=== PATIENT | male | born 1945 | race Caucasian/White ===

== ENCOUNTER 2016-04-18 07:49 | Inpatient (IN) | payer MEDICARE, OTHER ==
[2016-04-18] VITALS (9 sets, daily range): BP systolic 104–154; BP diastolic 56–81; PULSE 44–64; RESP 14–18; O2SAT 90–99
[~2016-04-18] VITALS: Ht 180.3 cm; Wt 91.1 kg
[~2016-04-18 07:49] MED LIST: ASCO500C6 PO; ASPI-973 PO; Acetaminophen IV 1,000 MG in IV Premix 1 EACH IV ONE; Bupivacaine Liposome 1.3% 20 mL Inj INFILTRATE SCH; CHOL400T PO; CYAN250014 PO; CeFAZolin Inj 2 GM in IV Premix 1 EACH IV ONE; DICL100G8 TOPICAL; FAMO20T PO; Lactated Ringer's 1,000 ML IV ONE; PUMP160C PO
--- NOTE | 2016-04-18 11:03 | PCM.HPANE ---
Patient Data Date of Service: Apr 18, 2016 Surgeon Admitting Provider: Attending Provider:Mei Maza MD Primary Care Physician:Harley Delgado MD Other Provider:Christiano Hauser Anesthesia Reason for Visit Prostate Cancer PROSTATE CANCER Ht/WT & BMI Height (Feet): 5 Height (Inches): 11.00 Weight (Kilograms): 91.0 Body Mass Index 28.00 Allergies Coded Allergies: No Known Allergies (Verified Allergy, Unknown, 07/31/13) Past Anesthesia History Anesthesia History: Denies:: Abnormal Airway, Anesthesia Reactions, Difficult Intubation, Fam Anesthesia Reaction, Fam Malignant Hypertherm, Malignant Hyperthermia Diabetes History Hx Diabetes?: No MRSA MRSA: No Medications Blood Thinner: Aspirin Hypertension Medication: No Home Meds Incl Beta Berny: No Reported Medications Cyanocobalamin (Vitamin B-12) (Vitamin B12)2,500 Mcg Tab.chew2,500 Mcg PO DAILY 04/14/16 Ascorbic Acid (Vitamin C)500 Mg Capsule.er500 Mg PO DAILY 04/14/16 Famotidine (Pepcid)20 Mg Clyieu96 Mg PO DAILY 04/14/16 Diclofenac Gel (Voltaren Gel)100 Gm Tube1 Applic TOPICAL PRN For Pain #1 TUBE 04/14/16 Pumpkin Seed Oil/Saw Crum Lynne (Saw Crum Lynne 160 mg Softgel)160 Mg Ptxsjiv318 Mg PO DAILY 04/14/16 Cholecalciferol (Vitamin D3) (Vitamin D3)400 Unit Clgsjv120 Unit PO DAILY 04/14/16 Aspirin 81 Mg Uooijk04 Mg PO DAILY Ref 0 04/14/16 Discontinued Reported Medications Famotidine 20 Mg Lvzade71 Mg PO BID 30 Days Ref 0 07/31/13 Aspirin (Aspir 81)81 Mg Tablet.dr81 Mg PO DAILY Ref 0 07/31/13 History History of ENT Problems?: Yes HEENT History: Positive for:: Hearing Problem Denies:: Abnormal Airway Cataracts Difficult Intubation Dysphagia Glaucoma Sinus Problem TMJ Hx of Heart Problems?: No Cardiovascular History: Positive for:: Peripheral Vascular (hx varicose veins) Denies:: AICD Edema Heart Murmur Hypertension Irregular Heartbeat Pacemaker Rheumatic Fever Thrombophlebitis Valvular Heart Disease Hx of Respiratory Problem?: Yes Respiratory History: Denies:: Asthma COPD Emphysema Oxygen Administration Pneumonia Tuberculosis (family member with TB, no postive test personally) Use of C-PAP Machine Hx Neurologic Problems?: Yes Neurological History: Denies:: CVA Headaches (hx of ocular migraines, remote hx of ) Multiple Sclerosis Parkinson's Disease Seizures Hx of GI Problems?: Yes Gastrointestinal History: Positive for:: Gastroesphageal Reflux (takes famotidine, remote hx of foreign body) Denies:: Cirrhosis Diverticulitis (DIVERTICULOSIS) Gall Bladder Disease Gastrointestinal Bleeding Heartburn Hepatitis Hiatal Hernia Liver Disease Hx of Problems?: No Genitourinary History: Denies:: HX of Hemodialysis (HX OF CHRONIC RENAL INSUFFICIENCY) Kidney Stones Urinary Tract Infection Male Hx: Positive for:: Prostate Problems (current admission problem) Testicular Surgery (S/P VASECTOMY) Denies:: Scrotal Mass Skin History: Denies:: History Skin Disorders? Pressure Ulcers Hx Musculoskeletal Problems?: Yes Musculoskeletal History: Positive for:: Musculoskeletal Trauma (past hx bilateral fx wrists) Osteoarthritis Denies:: Back Injury Fibromyalgia Joint Replacement Myasthenia Gravis Rheumatoid Arthritis Systemic Lupus Hx of Psycho/Social Problems?: No Psycho Social History: Denies:: Anxiety Hx Depression Hx Surgeries?: Yes (varicose veins, tonsil, vas) Hx Any Other Health Problems?: Yes Other History: Positive for:: Cancer (prostate current admission problem) Hospitalization (AFTER FALL/FX WRISTS) Denies:: Thyroid Disease History Blood Transfusions: Positive for:: Accept Blood Products? Denies:: Blood Transfusions Hx Diabetes: No Hx Alcohol Use: YesAlcoholic Drinks Per Day: 2-3 drinks dailyHx Substance Use : NoHave You Smoked inLast 12 mo: No Stop/Bang S-Snoring: Do You Snore Loudly: No T-Tired: feel tired, fatigued: No O-Obsered: Observed not breath: No P-Blood Pressure: treated: No B- Body Mass Index > 35 kg/m2: No A- Age over 50: Yes N- Neck Large Circumference: No G- Gender Male: Yes RON Total Score: 2 RON Risk Assessment: Low Risk, <3 Yes Risk Assessment Category Category 1A: Patient has history of documented sleep apnea, and HAS NOT received any narcotic, sedative or anesthesia administration during this stay. Category 1B: Patient has history of documented sleep apnea, and HAS received any narcotic , sedative or anesthesia administration during this stay Category 2: Patient has SUSPECTED Obstructive Sleep Apnea, and HAS received any narcotic , sedative or anesthesia administration during this stay. Category 3: Patient has SUSPECTED Obstructive Sleep Apnea and HAS NOT received narcotic, sedative or anesthesia administration during this stay. Category 4: Outpatient in Procedural Areas with known sleep apnea or who screen positive for High Risk via the STOP/BANG questionnaire. Exam Exam Vital Signs Vital Signs Date Time Temp Pulse Resp B/P Pulse Ox O2 Delivery O2 Flow Rate FiO2 04/18/16 08:23 36.0 53 18 154/81 99 Room Air General Appearance: Alert, Oriented X3, Cooperative, No Acute Distress HEENT/AIRWAY: MP 1 Lungs: Normal Air Movement Heart: Exam Unremarkable Meds/Labs/Diagnostics Admission Meds Current Medications Lactated Ringer's (Lr) 1,000 ml @ 120 mls/hr Q8H20M ONCE IV Last administered on 04/18/16t 07:57; Start 04/18/16 at 05:00; Stop 04/18/16 at 13:19 Plan Impression Patient chart reviewed, patient interviewed and anesthestic plan with risks, benefits, and alternatives discussed, and informed consent obtained. NPO Status: BLACK COFFEE AND WATER UNTIL 6AM ASA Physical Status: ASA2 Mod Systemic Disease Anesthetic Plan: GA, SAB (for post-op pain ) Bene/Risks/Altern/Consents: Yes HP Complete Prior to Induction: Yes Troy Zelaya MD Apr 18, 2016 08:51
[2016-04-18] MEDS ORDERED: Lactated Ringer's 1,000 ML IV SCH (11:17)
[2016-04-18] MEDS ORDERED: Lactated Ringer's 500 ML IV PRN (11:17)
[2016-04-18] MEDS ORDERED: Phenylephrine 10,000 mCg/mL Inj IVPUSH PRN (11:20)
[2016-04-18] MEDS ORDERED: fentaNYL-PF 50 mCg/mL 2 mL Inj IVPUSH PRN (11:20)
[2016-04-18] MEDS ORDERED: Atropine 0.4 mg/mL Inj IVPUSH PRN (11:20)
[2016-04-18] MEDS ORDERED: Labetalol 5 mg/mL 4 mL Inj IV PRN (11:20)
[2016-04-18] MEDS ORDERED: hydrALAZINE 20 mg/mL Inj IVPUSH PRN (11:20)
[2016-04-18] MEDS ORDERED: Ondansetron 2 mg/mL 2 mL Inj IVPUSH PRN (11:20)
[2016-04-18] MEDS ORDERED: EPHEDrine Sulfate 50 mg/mL Inj IVPUSH PRN (11:20)
[2016-04-18] MEDS ORDERED: Dexamethasone 4 mg/mL Inj IVPUSH PRN (11:20)
[2016-04-18] MEDS ORDERED: HYDROmorphone 1 mg/mL Inj IVPUSH PRN ×2 (11:20→13:05)
[2016-04-18] MEDS ORDERED: MetoCLOpramide 5 mg/mL 2 mL Inj IVPUSH PRN (11:20)
[2016-04-18 12:19] LABS: APPEARANCE,URINE HAZY (CLEAR,HAZY); COLOR,URINE STRAW (YELLOW); OCCULT BLOOD,URINE MODERATE (NEGATIVE)
[2016-04-18 12:20] LABS: UROBILINOGEN,URINE NORMAL (NORMAL)
[2016-04-18] MEDS ORDERED: Lactated Ringer's 1,000 ML IV ONE (12:30)
[2016-04-18] MEDS ORDERED: Polyethylene Glycol (PEG) 17 Gm Powder PO PRN (13:05)
[2016-04-18] MEDS ORDERED: Ketorolac 15 mg/mL Inj IVPUSH PRN (13:05)
--- NOTE | 2016-04-18 13:43 | PCM.ANEP1 ---
Post Anesthesia Phase 1 PACU Phase 1 Assessment Date of Service: Apr 18, 2016 Vital Signs Vital Signs Date Time Temp Pulse Resp B/P Pulse Ox O2 Delivery O2 Flow Rate FiO2 04/18/16 13:30 58 14 110/70 96 Nasal Cannula 4 04/18/16 13:25 51 14 111/71 95 Nasal Cannula 4 04/18/16 13:15 36.5 55 14 104/56 90 Nasal Cannula 4 04/18/16 08:23 36.0 53 18 154/81 99 Room Air Anesthetic Administered: GA, SAB Level of Alertness: Sleepy, easy to arouse Pain: No Nausea or Vomiting: No Oxygen Delivery: Nasal Cannula Lungs: Normal Air Movement Troy Zelaya MD Apr 18, 2016 13:43
[2016-04-18] MEDS ORDERED: fentaNYL-PF 50 mCg/mL 2 mL Inj ONE (14:20)
[2016-04-18] MEDS ORDERED: Propofol 10,000 mCg/mL 20 mL Inj ONE (14:20)
[2016-04-18] MEDS ORDERED: Dexamethasone 4 mg/mL Inj ONE (14:20)
[2016-04-18] MEDS ORDERED: Morphine PF 1 mg/mL 10 mL Inj ONE (14:20)
[2016-04-18] MEDS ORDERED: Ondansetron 2 mg/mL 2 mL Inj ONE (14:20)
--- NOTE | 2016-04-18 14:29 | PCM.ANEP2 ---
Post Anesthesia Evaluation ASA/CMS Post Anesthesia Date of Service: Apr 18, 2016 VS in Patient's Normal Range?: Yes Resp Stable; Airway Patent?: Yes CV Function & Hydration Stable: Yes Mental Status Recovered?: Yes Pain control Satisfactory?: Yes N/V Control Satisfactory?: Yes Troy Zelaya MD Apr 18, 2016 14:29
[2016-04-18] MEDS: Lactated Ringer's 1,000 ML IV SCH ×2 (14:39→23:03)
[2016-04-18] MEDS: Acetaminophen IV 1,000 MG in IV Premix 1 EACH IV SCH ×2 (15:02→19:51)
[2016-04-18] MEDS: Ascorbic Acid 500 mg Tablet PO SCH (16:05)
--- NOTE | 2016-04-18 19:25 | NUR ---
Arrival to Floor, Pain Patient arrived to floor from PACU alert and oriented. SCD's in place, ordered fluids hung. Patient states pain is at tolerable level, denies nausea. Surgical dressing clean, dry and intact. HILARIO drain draining serosanguineous fluids. Reaves catheter draining pink tinged urine. Care is ongoing.
[2016-04-19 00:06] VITALS: BP 127/70; PULSE 58; RESP 16; O2SAT 98
[2016-04-19] MEDS: Acetaminophen IV 1,000 MG in IV Premix 1 EACH IV SCH ×3 (01:47→16:57)
--- NOTE | 2016-04-19 07:23 | NUR ---
Méndez Patient's méndez still draining pinkish red. HILARIO had 80cc output this shift. Patient states he has very little pain and declines pain medication other than IV Tylenol this shift. Patient A&OX3. Anxious to get up and out of bed, but informed of orders to remain in bed until there is no longer blood in urine.
[2016-04-19] MEDS ORDERED: 0.9% Sodium Chloride 250 ML ONE (08:29)
[2016-04-19] MEDS: Ascorbic Acid 500 mg Tablet PO SCH (08:45)
[2016-04-19] MEDS: Lactated Ringer's 1,000 ML IV SCH ×3 (08:52→21:04)
--- NOTE | 2016-04-19 10:26 | NUR ---
Social Work- Initial Assessment 17Data: See Initial Assessment. Pt is a 70 year old male admitted 04/18/16 for prostate cancer per H&P. Pt's insurance is Medicare and [employer]. PCP is Harley Delgado MD. EMR reviewed. NIKIA met with pt and family ( Vandana [phone] and daughters Taylor and Carly) at bedside to discuss discharge planning, SW role explained. Pt was alert and oriented x3. Pt resides in a house in [place] with his where he remains independent with his ADLs. Pt uses no DME and drives. Pt has no HH or SNF history. SW discussed DPOA, pt states he has this completed and on file at hospital. Pt has no LTC benefits but does have VA benefits. SW left phone number and plan on whiteboard. Pt to be discharged home with family to transport. No anticipated discharge needs. SW will continue to follow if needs arise. Assessment: [place]. Plan: Pt to discharge home with family to transport. No antcipated discharge needs. NIKIA will continue to follow if needs arise. Arabella Griffin MSW Addendum: 04/19/16 at 1030 by ALDA GRIFFIN Amended: Links added.
[2016-04-19 11:13] VITALS: BP 126/76; PULSE 52; O2SAT 97
[2016-04-19 13:36] VITALS: BP 136/71
--- NOTE | 2016-04-19 14:12 | NUR ---
Ambulation Pt was lying in bed for the previous 24 hours. Pt ambulated with SBA to shower, showered self with assistance, and walked around unit twice with FWW Pt was in good spirits and verbalized that he felt much better.
--- NOTE | 2016-04-19 19:04 | NUR ---
GI BT present and pt stating passing flatus. Up to BR to attempt BM, no output. Pt made aware of available stool softeners/supp. Pt trying his home remedy of peppers and wanting to try again later before taking medication. Pt up to BR at 1850 to reattempt BM. NOC rn made aware that if pt unsuccessful to push for stool softeners to prevent straining. Addendum: 04/19/16 at 1906 by ADRIANO CHINCHILLA RN Care continues
[2016-04-19 19:40] VITALS: BP 124/77; PULSE 54; RESP 17; O2SAT 93
--- NOTE | 2016-04-20 01:13 | NUR ---
Ambulation Patient up ambulating twice before bedtime this shift. Patient stable on feet with FWW. Patient did have some nausea while up ambulating, but the nausea subsided quickly when patient sat back down on bed. A&OX3. Reaves patent and draining pinkish urine. Tylenol 650mg PO for pain 4/10 before bedtime.
--- NOTE | 2016-04-20 04:24 | NUR ---
Méndez Patient's méndez was leaking around tubing, but still had steady flow to bag. Irrigated with 1200cc. No clots came out. Méndez patent and draining pink fluid.
[2016-04-20] MEDS: Lactated Ringer's 1,000 ML IV SCH ×2 (05:04→11:48)
[2016-04-20 05:43] VITALS: BP 138/69; PULSE 58; RESP 17; O2SAT 95
[2016-04-20] MEDS: Ascorbic Acid 500 mg Tablet PO SCH (09:00)
--- NOTE | 2016-04-20 09:04 | PROG NOTE ---
[address] [address] PROGRESS NOTE PATIENT: ALICIA CEE : 1945 MR#: [id number] ADMIT: 04/18/2016 JOB ID: [id number] DATE: 04/19/2016 SUBJECTIVE: Postoperative day #1 status post radical prostatectomy. He had an uneventful night. No complaints. Denies pain. Eight hour urine output 2080 cc. Eight hour HILARIO output 80 cc. OBJECTIVE: Afebrile. Vital signs are stable. Sitting upright in bed, resting comfortably. Chest: Equal, clear and unlabored bilaterally. Abdomen is protuberant, soft. Bowel sounds are active. Dressing and HILARIO drain intact. External genitalia: Mild edema, uncircumcised phallus with indwelling Reaves with very light pink-tinged urine. No clots. Extremities: No pallor, cyanosis or edema. SCDs in place. IMPRESSION: Stable postoperative day #1 status post radical prostatectomy. PLAN: 1. Increase diet and ambulation. 2. Followup pathology. 3. Catheter care and use instruction.
--- NOTE | 2016-04-20 09:36 | NUR ---
[facility] Signed 920AM
--- NOTE | 2016-04-20 10:21 | NUR ---
Social Work- Readiness for Discharge Data: EMR reviewed. Pt is on day 2 of hospitalization for prostate cancer per H&P. Pt to discharge home with family to transport. No anticipated discharge needs. SW will continue to follow if needs arise. Assessment: [place] Plan: Pt to discharge home with family to transport. No antcipated discharge needs. SW will continue to follow if needs arise. SLIM Hi
[2016-04-20 12:09] VITALS: BP 126/83; PULSE 66; O2SAT 93
--- NOTE | 2016-04-20 13:22 | NUR ---
Social Work- Discharge Data: EMR reviewed. Pt is on day 2 of hospitalization for prostate cancer per H&P. Pt to discharge home with family to transport. No discharge needs. Assessment: [place]. Plan: Pt to discharge home with family to transport. No discharge needs. Arabella Le MSW
[2016-04-20 13:49] VITALS: BP 123/77; PULSE 77; RESP 18; O2SAT 97
--- NOTE | 2016-04-20 14:05 | OP ---
[address] [address] OPERATIVE REPORT PATIENT: ALICIA CEE : 1945 MR#: [id number] ADMIT: 04/18/2016 JOB ID: [id number] DATE OF SURGERY: 04/18/2016 PREOPERATIVE DIAGNOSIS(ES): Carcinoma of the prostate. POSTOPERATIVE DIAGNOSIS(ES): Carcinoma of the prostate. OPERATION PERFORMED: Radical retropubic prostatectomy and bilateral pelvic lymphadenectomy. SURGEON: Mei Maza MD MICA PASTER: FRANCIS Veloz ANESTHESIA: General plus Duramorph spinal. ANESTHESIOLOGIST: Troy Zelaya MD PROCEDURE SUMMARY: The patient was positioned in supine following placement of Duramorph spinal and induction of general anesthetic. The abdomen, genitalia and groin were prepped and draped in sterile fashion. A 22 Congolese Reaves catheter was inserted in the lower urinary tract, placed to gravity drainage. Next, a midline infraumbilical incision through the layers of the midline inferior abdominal wall to the preperitoneal space. The peritoneal contents and pelvic structures were reflected from the anterior and lateral pelvic sidewalls using blunt technique. Next bilateral pelvic lymph node dissection was undertaken using the same steps and maneuvers as follows: Adventitia overlying the external iliac vein was divided along its length and the rah packet was swept away from the lateral pelvic sidewall. The obturator vessels and nerve were observed in both instances and preserved. Small and large Heme lock clips were applied where indicated for hemostasis. Next the endopelvic fascia was incised on either side of the prostate to allow access to the prostatic apex. The prostatic fascia was then opened and appropriate plane was developed. It was incised longitudinally at the lateral margin of the prostate bilaterally. The prostatic fascia were then reflected posteriorly in an attempt to preserve the course of the cavernous nerves. Further careful dissection using blunt and sharp technique was undertaken in the area of the prostatic apex and membranous urethra. Next, the dorsal venous complex was divided using the LOREN-60. Next, the urethra was isolated and was divided just distal to the prostatic apex. The prostate apex was then reflected superiorly and cranially with division of the rectourethralis musculature. Now a plane was developed between anterior rectal wall and the Denonvilliers fascia and the posterior lateral vascular pedicle was isolated and ligated using small and large locking Hemoclips with sharp division. Next the Denonvilliers fascia was opened and the fossa of the seminal vesicles was entered. Careful dissection of the seminal vesicles and the ampulla of the vas bilaterally was undertaken using blunt and sharp technique with application of small Hemo locks were indicated for hemostasis. The ampulla of the vas was clipped proximally and distally before sharp transection. Next the prostatic base was dissected carefully off the bladder neck using blunt, sharp, and cautery technique. The prostate and attached seminal vesicles were handed off the field and sent for routine gross and microscopic examination. Next the bladder mucosa was effaced using interrupted 4-0 Polysorb. Next the Anabel sound was placed in the urethra to expose the margins of the membranous urethral stump. Anastomotic suture of 2-0 Polysorb at the 2, 4, 6, 8 and 10 o'clock positions circumferentially at the membranous urethra and through the corresponding positions of the bladder neck under direct visualization. Next, an 18 Congolese Reaves catheter was inserted into the lower uterine tract and advanced into the bladder and the balloon was inflated to 15 mL. The anastomotic sutures were then tied down snugly, thus completing the vesicourethral anastomosis. The catheter was irrigated clear, placed to gravity drainage. A 15 Congolese Sohail drain was placed in the space of Retzius and brought out through a separate stab incision to the right of the midline incision. This was secured in place with 2-0 silk suture. Next, midline abdominal fascia was closed with running #1 Maxon. The subcutaneous layer was reapproximated using a running 2-0 Polysorb. Finally the skin was reapproximated using a running subcuticular of 4-0 Polysorb. Telfa and OpSite dressings were applied to the midline incision and the drain site and the patient was awakened, transferred to [facility], and transferred to the recovery area, awake and in stable condition. He tolerated the procedure well.
--- NOTE | 2016-04-20 14:07 | DIS ---
[address] [address] DISCHARGE SUMMARY PATIENT: ALICIA CEE : 1945 MR#: [id number] ADMIT: 04/18/2016 JOB ID: [id number] DIS: 04/20/2016 ADMITTING DIAGNOSIS: Carcinoma of the prostate. DISCHARGE DIAGNOSIS: Carcinoma of the prostate. OPERATION PERFORMED: Radical retropubic prostatectomy and bilateral pelvic lymphadenectomy. HOSPITAL SUMMARY: The patient was admitted on April 18, 2016 and underwent uncomplicated radical retropubic prostatectomy and bilateral pelvic lymphadenectomy under Duramorph, spinal and general anesthetic. His postop recovery was largely unremarkable in that he tolerated a general diet immediately the night postoperative and ambulated without assistance in the morning of the first postoperative day. Pain was well controlled with very little oral narcotic analgesia. On the morning of April 20, 2016, he was stable for discharge. He was provided prescriptions for oxycodone, ciprofloxacin and Lovenox with intake and administration instructions, precautions and review of side effects. Post prostatectomy activity, driving and hygiene instructions were reviewed. A postoperative visit will be scheduled for catheter removal on the morning of April 29, 2016. Pathology is pending at discharge.
--- NOTE | 2016-04-20 15:03 | NUR ---
DC Pt and family reviewed discharge instructions. Pt states that he understand how to administer Lovenox Injections as well as change his Reaves catheter collection bags. All instructions reviewed with pt and family. All belongings in hand. IV removed. HILARIO Drain removed and dressings removed with incision well approximated and left open to air. Reaves catheter leg bag in place and draining to gravity pink tinged urine. Prescriptions previously given to daughters with permission from Pt to be dropped off at pharmacy of choice. Pt leaves vis WC and ambulated to car independently with steady gait. Pt goes home with family. Care discontinues
--- NOTE | 2016-04-25 07:57 | PATH ---
SURGICAL PATHOLOGY Attending Physician:Mei Maza MD CASE STATUS: Signed Out PATIENT NAME: ALICIA CEE PID: [id number] : 1945 DATE COLLECTED:04/18/2016 20:48 SPECIMEN: 1: Lymph Node, Biopsy 2: Lymph Node, Biopsy 3: Seminal Vesicle 4: Prostate 5: Bladder Neck CLINICAL HISTORY: PROSTATE CANCER 1). RIGHT PELVIC NODES 2). LEFT PELVIC NODES 3). LEFT SEMINAL VESICLE 4). PROSTATE 5). LEFT BLADDER NECK FINAL DIAGNOSIS: 1.RIGHT PELVIC NODES: FIVE LYMPH NODES IDENTIFIED, ALL ARE NEGATIVE FOR METASTATIC CARCINOMA (0/5 NODES). 2.LEFT PELVIC NODES: TWO LYMPH NODES IDENTIFIED, BOTH ARE NEGATIVE FOR METASTATIC CARCINOMA (0/2 NODES). 3.LEFT SEMINAL VESICLE: SEMINAL VESICLE, NO EVIDENCE OF MALIGNANCY. 4.PROSTATE, RADICAL PROSTATECTOMY: PROSTATIC ADENOCARCINOMA PROSTATE SIZE: WEIGHT: 34 GRAMS SIZE: 4.1 X 4.0 X 4.5 CM. HISTOLOGIC TYPE: ADENOCARCINOMA (ACINAR, NOT OTHERWISE SPECIFIED). HISTOLOGIC GRADE: ASHLEY PRIMARY PATTERN: PATTERN 3 ASHLEY SECONDARY PATTERN: PATTERN 4 TERTIARY PATTERN: PATTERN 5 TOTAL ASHLEY SCORE: 3 + 4 = 7 GRADE GROUP: GRADE GROUP 2 TUMOR QUANTITATION: PERCENTAGE OF PROSTATE INVOLVED BY TUMOR: 15% SIZE OF DOMINANT NODULE: GREATEST DIMENSION 20 MM. EXTRAPROSTATIC EXTENSION: NOT IDENTIFIED. URINARY BLADDER NECK INVASION: NOT IDENTIFIED. SEMINAL VESICLE INVASION: NOT IDENTIFIED. MARGINS: UNINVOLVED BY INVASIVE CARCINOMA. PERINEURAL INVASION: PRESENT. REGIONAL LYMPH NODE SUMMARY: NUMBER OF LYMPH NODES EXAMINED: 0 NUMBER OF LYMPH NODES EXAMINED: 7 (SEE PARTS 1 AND 2) PATHOLOGIC STAGE CLASSIFICATION (pTNM, AJCC 7th Ed.): PRIMARY TUMOR: pT2c. REGIONAL LYMPH NODES: pN0. 5.LEFT BLADDER NECK: BENIGN FIBROMUSCULAR TISSUE FRAGMENTS, NO EVIDENCE OF MALIGNANCY. ICD10 code C61 GROSS DESCRIPTION: The specimens are received in formalin, labeled with the patient's name, and sublabeled as the following: (1) right pelvic nodes; (2) left pelvic node; (3) left seminal vesicle; (4) prostate; (5) left bladder neck. (1) The specimen consists of a piece of adipose tissue (6.2 x 2.7 x 1.3 cm) containing multiple possible lymph nodes (should one 1.1 x 0.7 x 0.2 cm-2.5 x 1.4 x 1.2 cm). Section code: (1A, 1B) one lymph node in each cassette, serially sectioned; (1C-1D) one lymph node, serially sectioned; (1E-1F) one lymph node, serially sectioned; (1G) remaining adipose tissue. Specimen entirely submitted. (2) The specimen consists of a piece of adipose tissue (5.0 x 2.3 x 1.5 cm) containing multiple possible lymph nodes (1.2 x 0.7 x 0.5 cm-3.2 x 1.2 x 1.0 cm). Section code: (2A, 2B) one lymph node in each cassette, serially sectioned; (2C-2E) one lymph node, serially sectioned; (2F) remaining adipose tissue. Specimen is entirely submitted. (3) The specimen consists of a molina shiny rubbery unremarkable piece of seminal vesicle (2.5 x 1.5 x 0.8 cm). Ink code: black-resection margin. Section code: (3A) seminal vesicle, serially sectioned, resection margin and mill representative submitted. (4) The specimen consists of a prostate gland (34.2 g, 4.1 cm AP, 4.0 cm SI, 4.5 cm ML) with seminal vesicles (right-4.5 x 2.1 x 0.9 cm; left-3.9 x 1.1 x 0.7 cm) and vasa deferentia (right: length-3.0, diameter-0.6 cm; left: length-3.5 cm, diameter-0.5 cm). The prostate gland is serially sectioned base to apex into 10 slices with the base and apex as slices #1 and #10 respectively. The base is irregular and bulges outward beyond the normal prostate contour. The parenchyma is aguirre-molina and spongy a focally pale yellow whorled multinodular appearance predominantly in the left half adjacent to the urethral orifice. Ink code: purple-right anterior; yellow-right posterior; blue-left anterior; green-left posterior; orange-urethral orifice. Section code: (4A, 4B) right seminal vesicle and vasa deferentia-base junction; (4C, 4D) left seminal vesicle and vasa deferentia-base junction; (4E-4I) base, perpendicularly sectioned and submitted right to left, entirely submitted; (4J-4K) slice #3, bisected and submitted right to left, entirely submitted; (4L-4M) slice #4, bisected and submitted right to left, entirely submitted; (4N) slice #5, bisected right to left, left half submitted (4O) slice #6, bisected right to left, left half submitted; (4P) slice #7, bisected right to left, left half submitted; (4Q-4R) apex, perpendicularly sectioned and submitted right to left, entirely submitted. (5) The specimen consists of multiple pieces of molina-mcdermott rubbery glistening tissue (1.5 x 0.7 x 0.4 cm in aggregate). Section code: (5A) tissue. Specimen entirely submitted. 04/20/16 JM MICRO DESCRIPTION: See diagnosis. ICD-9 CODES: CPT CODES: 1: 00648 2: 91991 3: 24633 4: 40478 5: 99428 Electronically Signed Out Mariluz Medley MD [facility], [place] [address] Technical component performed at [facility], [address] [place] [address] Ave[address], [place], [address]
== END 2016-04-20 14:30 | disposition home or self-care (01) | DRG 708 ==
LOC: SAS 07:49 → OSC 14:19
PROVIDERS: ADMIT Specialist; ATTEND Specialist
PROC: 07TC0ZZ Resection of Pelvis Lymphatic, Open Approach (ICD-10-PCS; 2016-04-18)
PROC: 0VT00ZZ Resection of Prostate, Open Approach (ICD-10-PCS; principal; 2016-04-18 10:00)
DX: C61 Malignant neoplasm of prostate (principal); I73.9 Peripheral vascular disease, unspecified; K21.9 Gastro-esophageal reflux disease without esophagitis